=== PATIENT | male | born 1985 ===

== ENCOUNTER 2018-12-14 20:08 | Emergency (ER) | payer SELFPAY ==
[2018-12-14] MEDS ORDERED: NACL 0.9% 1000 ML 1,000 ML IV ONE ×4 (20:13→22:28)
[2018-12-14] MEDS ORDERED: LOPRESSOR IV ONE ×4 (20:14→20:21)
--- NOTE | 2018-12-14 20:18 | Emergency Department Report ---
ED General Adult HPI - General Stated complaint: CHEST PAIN Time Seen by Provider: 12/14/18 20:10 - History of Present Illness Initial comments: Mr. Bolanos is a healthy 33-year-old male who presents with sudden onset of "body pain" he states "I may have used some drugs. Meth." he smoked a small bit of amount of drug. Never used drugs before. states that he drank a lot of alcohol this weekend. HE feels funny in his chest without pain. He feels overwhelmed in his body according to patient. -: Sudden, hour(s) (2) Location: chest Consistency: constant Improves with: none Worsens with: none Associated Symptoms: other (anxiety) - Related Data Home Medications Medication Instructions Recorded Confirmed Last Taken No Known Home Medications [No 12/14/18 12/14/18 Unknown Reported Home Medications] Allergies Allergy/AdvReac Type Severity Reaction Status Date / Time No Known Allergies Allergy Unverified 12/14/18 21:09 ED Review of Systems ROS: Stated complaint: CHEST PAIN Other details as noted in HPI Comment: All other systems reviewed and negative Constitutional: denies: fever, malaise Respiratory: shortness of breath. denies: cough Cardiovascular: palpitations Psychiatric: anxiety ED Past Medical Hx - Past Medical History Previous Medical History?: No - Surgical History Past Surgical History?: No - Social History Substance Use Type: Alcohol, Methamphetamines - Medications Home Medications: Home Medications Medication Instructions Recorded Confirmed Last Taken Type No Known Home Medications [No 12/14/18 12/14/18 Unknown History Reported Home Medications] ED Physical Exam - General General appearance: alert, appears intoxicated, other (hyperventilating anxious) - Head Head exam: Present: atraumatic, normocephalic - Eye Eye exam: Present: normal appearance - ENT ENT exam: Present: mucous membranes moist - Neck Neck exam: Present: normal inspection, full ROM - Respiratory Respiratory exam: Present: normal lung sounds bilaterally. Absent: respiratory distress, wheezes, rales, rhonchi - Cardiovascular Cardiovascular Exam: Present: normal rhythm, tachycardia, normal heart sounds. Absent: systolic murmur, diastolic murmur, rubs, gallop - GI/Abdominal GI/Abdominal exam: Present: soft, normal bowel sounds. Absent: distended, tenderness, guarding, rebound - Rectal Rectal exam: Present: deferred - Extremities Exam Extremities exam: Present: normal inspection - Neurological Exam Neurological exam: Present: alert, oriented X3 - Psychiatric Psychiatric exam: Present: normal affect, normal mood, anxious - Skin Skin exam: Present: warm, dry, intact, normal color. Absent: rash ED Course Vital Signs 12/14/18 12/14/18 12/14/18 20:19 21:09 22:16 Pulse Rate 174 H 109 H 83 Respiratory 22 24 19 Rate Blood Pressure 207/134 Blood Pressure 163/125 93/76 [Right] O2 Sat by Pulse 98 98 98 Oximetry 12/14/18 12/15/18 23:14 00:39 Pulse Rate 88 76 Respiratory 17 13 Rate Blood Pressure Blood Pressure 125/75 125/77 [Right] O2 Sat by Pulse 95 98 Oximetry ED Medical Decision Making - Lab Data Result diagrams: 12/14/18 20:19 12/14/18 21:37 - EKG Data 12/14/18 20:16 EKG obtained 2008, Narrow complex tachycardia supraventricular ventricular rate [address] elevation difficult to interpret QT interval at this point, calculated QTC 501 ms no signs of ischemia - Medical Decision Making Upon arrival my colleague and I met the patient in his at the bedside at the triage bay. He arrived per private auto. Hoking and commotion noted by nursing staff. Placed on a stretcher and wheeed to our resuscitation room. Immediately Mr. Sanches admitted to methamphetamine use. Feels an odd sensation all over. He denies chest pain. But he says that his heart is "crackling". He denies previous drug abuse. Upon EKG supraventricular tachycardia documented. I suspect the sinus tachycardia. After 3 doses of metoprolol IV, I did notice P waves on the c ardi[facility] monitor which confirmed sinus tachycardia. Blood pressure was extremely high with systolic blood pressure 201. After 3 doses of metoprolol, blood pressure systolic blood pressure decreased to 170. His repeat heart rate 140s. He received IV fluid. He also received IV lorazepam. Also receive oxygen supplementation. Once vital signs stablized, delirium was more prominent. He required chemical sedation with IM haloperidol. He exhibited impulsive behavior, pulling out IV access. Once awake, I anticipate Mr. Patel will be in his normal mental state. Awaiting for Mr. Patel to awaken from sedation. Critical Care Time: Yes Critical care time in (mins) excluding proc time.: 40 Critical care attestation.: If time is entered above; I have spent that time in minutes in the direct care of this critically ill patient, excluding procedure time. 40 minutes of critical care time excluding procedures were used in the care of the patient. Patient required multiple assessments and interventions. I reviewed the electronic medical record. I obtain history from family. I initiated presentation upon arrival. Patient came by private auto to the [place]. Patient was in obvious distress. ED Disposition Clinical Impression: Acute delirium, Methamphetamine abuse, Intoxication by drug Disposition: DC-01 TO HOME OR SELFCARE Is pt being admited?: No Does the pt Need Aspirin: No Condition: Stable Instructions: Methamphetamine Abuse (ED), Polysubstance Abuse (ED) Referrals: STEVE NATION MD [Primary Care Provider] - 3-5 Days Forms: Work/School Release Form(ED) Print Language: SERBIAN
[2018-12-14] MEDS ORDERED: ATIVAN IV ONE ×3 (20:20→21:05)
[2018-12-14 20:36] LABS: Hemoglobin 18.9 gm/dl (11.8-15.2); Mean Corpuscular HGB Conc 35 % (32-34); Mean Corpuscular Volume 92 fl (84-94); Red Blood Count 5.81 M/mm3 (3.65-5.03)
[2018-12-14 20:37] LABS: Hematocrit 53.5 % (35.5-45.6); Platelet Count 353 K/mm3 (140-440)
[2018-12-14 21:07] LABS: BUN/Creatinine Ratio TNR; Blood Urea Nitrogen TNR mg/dL (9-20)
[2018-12-14 21:08] LABS: Alanine Aminotransferase TNR units/L (7-56); Albumin TNR g/dL (3.9-5); Calcium TNR mg/dL (8.4-10.2)
[2018-12-14 21:09] LABS: Basophils % (Manual) 0 % (0.0-1.8); Hemolysis Index TNR; Total Cells Counted 100
[2018-12-14 21:10] LABS: Anisocytosis Few; Poikilocytosis Few
--- NOTE | 2018-12-14 21:39 | XRay Report ---
CHEST 1 VIEW INDICATION: dyspnea COMPARISON: None FINDINGS: Support devices: None Heart: Normal Lungs/Pleura: No acute pulmonary or pleural findings. IMPRESSION: 1. No acute abnormality Signer Name: Hebert Doe MD Signed: 12/14/2018 9:34 PM Workstation Name: [email or web address]
[2018-12-14 22:12] LABS: Alanine Aminotransferase 27 units/L (7-56); Albumin 3.9 g/dL (3.9-5); BUN/Creatinine Ratio 16; Blood Urea Nitrogen 14 mg/dL (9-20); Calcium 8.1 mg/dL (8.4-10.2); Hemolysis Index 56
[2018-12-14] MEDS ORDERED: HALDOL IM ONE (22:41)
[2018-12-15 07:19] LABS: Creatine Kinase MB 4.8 ng/mL (0.0-4.0)
[2018-12-15 07:24] LABS: BUN/Creatinine Ratio 12; Blood Urea Nitrogen 11 mg/dL (9-20); Hemolysis Index 9
[2018-12-15 07:40] LABS: Bilirubin,Urine NEG (Negative); Blood,Urine NEG (Negative); Color,Urine Yellow (Yellow); Mucus,Urine FEW /HPF; Protein,Urine <15 mg/dL mg/dL (Negative); Urobilinogen,Urine < 2.0 mg/dL (<2.0)
[2018-12-15 07:49] LABS: Benzodiazepines Screen,Urine PRESUMPTIVE NEGATIVE; Cannabinoid Screen,Urine PRESUMPTIVE NEGATIVE; Cocaine Screen,Urine PRESUMPTIVE NEGATIVE; Methadone Screen,Urine PRESUMPTIVE NEGATIVE; Opiate Screen,Urine PRESUMPTIVE NEGATIVE
[2018-12-15] MEDS ORDERED: NACL 0.9% 1000 ML 1,000 ML IV ONE (07:53)
[2018-12-15 08:06] LABS: WBC,Urine < 1.0 /HPF (0.0-6.0)
[2018-12-15 08:17] LABS: Amphetamine Screen,Urine PRESUMPTIVE POSITIVE
[2018-12-15 12:11] LABS: Creatine Kinase MB 5.3 ng/mL (0.0-4.0)
[2018-12-15 13:35] VITALS: BP 128/83
== END 2018-12-15 13:20 | disposition home or self-care (01) ==
LOC: ED 20:08
DX: F15.121 Other stimulant abuse with intoxication delirium (principal); R41.0 Disorientation, unspecified
CPT/HCPCS: 36415; 71045; 80048; 80053; 80307; 81001; 82550; 82553; 84484; 85007; 85025; 93005; 93010; 96361; 96372; 96374; 96375; 96376; 99291; J1630; J2060; J7030